=== PATIENT | male | born 1955 | race Caucasian/White ===

== ENCOUNTER 2024-06-02 17:37 | Emergency (ER) | payer MEDICARE, SELFPAY ==
[2024-06-02 17:47] VITALS: BP 132/81; PULSE 94; RESP 18; TEMP 36.7; O2SAT 98; BMI 27.9
--- NOTE | 2024-06-02 18:00 | W.ED.WOUNDLC ---
HPI - Wound/Laceration General: Chief Complaint: Wound/Laceration Stated Complaint: lac on left hand Time Seen by Provider: 06/02/24 17:55 Source: patient Mode of arrival: ambulatory Limitations: no limitations History of Present Illness: Patient is a 68-year-old male presents to the emergency department with laceration to left hand that occurred around 1300 today. Tetanus is up-to-date. He cut it while using a butcher helper knife, is on blood thinner and states he was able to control the bleeding with direct pressure. No distal neurovascular symptoms reported. No foreign body or contamination reported. The laceration is a flap laceration overlying dorsum of MCP of left second finger. Onset (ago): hour(s) Extremity Location: Left: hand Place: home Patient tetanus UTD: Yes Context: accidental Associated symptoms: Reports no associated symptoms; Denies chills, fever(s), nausea or vomiting Treatments prior to arrival: bandage Related Data Previous Rx's Medication Instructions Recorded cephalexin 500 mg capsule 500 mg PO BID 5 days #10 caps 06/02/24 Allergies Allergy/AdvReac Type Severity Reaction Status Date / Time Penicillins Allergy ALGY-Rash Verified 06/02/24 18:04 Review of Systems General: Reports: 10 or more systems reviewed and unremarkable except in HPI and below Const: Denies: fever(s) or chills Card: Denies: chest pain Resp: Denies: dyspnea GI: Denies: abdominal pain, nausea, vomiting or diarrhea Musc: Denies: extremity pain or joint pain Skin/Breast: Reports: new lesions (Laceration the left hand); Denies: rash, skin pain or skin tenderness Neuro: Denies: headache(s) Physical Exam Const: COMMON NORMALS: no acute distress, average body habitus, patient oriented x3, no limitations, healthy appearing, alert and well nourished HENMT: COMMON NORMALS: normocephalic and atraumatic HEAD & SCALP: normocephalic and atraumatic Neck/C-Spine: COMMON NORMALS: full ROM, no lymphadenopathy, supple and no meningeal signs Resp: COMMON NORMALS: normal respiratory effort, No use of accessory muscles and clear to auscultation bilaterally AUSCULTATION: clear to auscultation bilaterally Cardio: COMMON NORMALS: regular rate and regular rhythm RATE: regular rate RHYTHM: regular rhythm Extremity: COMMON NORMALS: full ROM and capillary refill normal NARRATIVE EXTREMITY EXAM: Distal neurovascular status of patient's left hand is intact Neuro: COMMON NORMALS: patient oriented x3 SENSORIUM/ORIENTATION: Yes alert MENINGEAL SIGNS: Yes no meningeal signs Skin: COMMON NORMALS: turgor normal NARRATIVE SKIN EXAM: Flap laceration, measuring approximately 4 cm, with no active bleeding or contamination/foreign body. This is overlying the second MCP of the left hand, no tendon or muscle exposure as this is superficial. GENERAL SKIN EXAM: turgor normal Procedures Laceration Laceration 1: Site: hand Side (If applicable): left Size (cm): 4 Description: flap and clean Depth: simple, single layer Local Anesthetic: lidocaine 2% and with epi Amount of anesthesia used (mL): 4 Pre-repair: wound explored Skin layer closed with: nylon Size (cm): 5-0 Number of sutures: 7 Technique: simple, interrupted Course Vital Signs: Vital signs: Vital Signs Temperature 98.1 F 06/02/24 17:47 Pulse Rate 94 06/02/24 17:47 Respiratory Rate 18 06/02/24 17:47 Blood Pressure 132/81 06/02/24 17:47 Pulse Oximetry 98 06/02/24 17:47 Oxygen Delivery Me thod Room Air 06/02/24 17:47 MDM - Wound/Laceration Medical Decision Making Patient on blood thinners, tetanus up-to-date, laceration to left hand prior to arrival. Bleeding controlled on arrival. With lack of be on his hand, will start on prophylactic antibiotics for few days. Wound was repaired, see procedure note. Procedure tolerated well with minimal to no blood loss. Wound care properly discussed, return precautions given. No radiology studies performed this visit Discharge Plan Discharge Patient Disposition: Home Clinical Impression: Laceration of left hand Qualifiers: Encounter type: initial encounter Foreign body presence: without foreign body Qualified Code(s): S61.412A - Laceration without foreign body of left hand, initial encounter Condition: Stable Prescriptions: New cephalexin 500 mg capsule 500 mg PO BID 5 Days Qty: 10 0RF Discharge Orders: Discharge ED (Routine); Ordered 06/02/24 Ordered By: Gerald Packer Patient Instructions: Laceration (ED) Activity Restrictions/Additional Instructions: Sutures out in 5 days. Take Keflex as prescribed. Keep wound dry and out of the sun. When cleaning, may dab with warm soap and water and then dab dry afterwards. Monitor for any significant increase in pain or swelling, drainage, or other concerning signs of infection and return as discussed. Coding Level of Care Code ED [employer] for Gina Chou
[2024-06-02] MEDS: lidocaine-epi 2% 20 mL INJ INJECTION (18:07)
[2024-06-02] MEDS: cephALEXin 500 mg Capsule PO (18:07)
[2024-06-02 18:47] VITALS: BP 141/79; PULSE 90; O2SAT 99
== END 2024-06-02 18:48 | disposition home or self-care (01) ==
PROVIDERS: Emergency Provider Physician Assistant
DX: S61.412A Laceration without foreign body of left hand, initial encounter (principal); W26.0XXA Contact with knife, initial encounter
CPT/HCPCS: 12002; 99283